=== PATIENT | male | born 2000 | race African-American/Black ===

== ENCOUNTER 2020-06-20 16:23 | Emergency (ER) | payer OTHER, SELFPAY ==
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
[2020-06-20 16:30] VITALS: BP 143/83; PULSE 89; RESP 18; TEMP 36.4; O2SAT 97; BMI 21.3
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
[2020-06-20] MEDS: Lidocaine HCl 1 % MPF 5 ML VIAL SUBCUT (19:08)
== END 2020-06-20 19:55 | disposition home or self-care (01) ==
PROVIDERS: Emergency Provider Internal Medicine; PCP Pediatrics
DX: S01.511A Laceration without foreign body of lip, initial encounter (principal); R51.9 Headache, unspecified; G50.1 Atypical facial pain; Y04.8XXA Assault by other bodily force, initial encounter; Y93.9 Activity, unspecified; Y92.410 Unspecified street and highway as the place of occurrence of the external cause; Y99.8 Other external cause status
CPT/HCPCS: 12011; 73120; 99283

== ENCOUNTER 2025-05-19 10:51 | Emergency (ER) | payer OTHER, SELFPAY ==
--- NOTE | ~2025-05-19 | XR_ITS ---
EXAMINATION: XR KNEE, LEFT CLINICAL INFORMATION: pain, growth COMPARISON: None available. TECHNIQUE: AP oblique and lateral views of the left knee. FINDINGS: Sclerotic marginated tunneling extending from the superior aspect of the lateral femoral condyle and medial aspect of the proximal metaphysis of the tibia and from posterior superior to anterior inferior. No acute cortical disruption or malalignment. Joint space narrowing involving the medial compartment. No suprapatellar bursa joint effusion. No lytic or blastic lesions. XR/XR knee LT 4V IMPRESSION: Status post ACL repair. Electronically signed by: Surinder Wright MD 05/19/2025 11:21 AM EDT
--- NOTE | 2025-05-19 10:59 | ED_ITS ---
HPI - General Adult General Chief complaint: Extremity Problem Stated complaint: Knee Leg Pain Time Seen by Provider: 05/19/25 11:07 Source: patient Mode of arrival: ambulatory Limitations: no limitations History of Present Illness ED Provider: HPI narrative: 24-year-old male with history of ACL repair approximately 6 years ago presenting with left knee pain, feels like he has small growth on the lateral aspect of his knee potentially over the site of meniscal repair as well, no new injury no fevers or chills no swelling. 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 Reports clicking and subluxation of the left knee. Related Data Allergies Allergy/AdvReac Type Severity Reaction Status Date / Time No Known Allergies Allergy Verified 05/19/25 11:02 Review of Systems Constitutional: Constitutional: Reports as per [facility] Past Medical History Medical History (Updated 05/19/25 @ 11:47 by Elvis Bustamante DO) Healthy adult Social History Social History Advance Directives: No Advance Directives Information Provided: Yes Physical Exam ED Exam Exam: Alert and oriented x4 Left knee examination, tight hamstrings, positive patellofemoral grind test, tenderness along lateral facet, no medial or lateral meniscus tenderness, possible anterior lateral plica, ACL is intact, MCL/LCL intact Soft compartments proximally and distally Vital Signs: Vital Signs - 24 hr 05/19/25 11:00 05/19/25 11:51 Temperature 97.4 F 97.4 F Pulse Rate 72 72 Respiratory Rate 16 16 Blood Pressure 115/75 115/75 Pulse Oximetry 99 99 Oxygen Delivery Method Room Air Room Air BMI result Body Mass Index 35.5 Course Course Course Narrative: Rapid medical examination performed in triage by Elaine Feldman PA-C. Patient is a 24 year old assigned male at presenting to the emergency department with left knee pain. Patient states that he has had surgery on this knee and the pain has been getting worse with concern for a growth in the left knee. Detailed physical exam and review of systems are deferred to the education technician. Imaging ordered. Patient placed back in the waiting room pending room availability and results. Medical Decision Making Medical Decision Making [facility] Narrative: Presenting with atraumatic left knee pain in the setting of prior surgery, my suspicion this is likely syndrome, patellofemoral syndrome, discussed hamstring stretching, modifying his workouts on concentrate on squatting down to less than 45 degrees, icing, anti-inflammatories, he would like to see a specialist which is also what I recommend. X-ray reassuring. No evidence for infectious etiology. Differential Diagnosis Differential Diagnoses: The differential diagnosis associated with the presentation includes (Patellofemoral syndrome, plica syndrome, cysts, cellulitis, infection, abscess) Independent Interpretation I performed an independent interpretation of an: Plain X-Ray (Tibial and femoral tunnel from prior ACL, no cysts no fractures noted) Radiology Impression Discussion of test interpretation with radiology: I have reviewed the radiologist's reading. Discharge Plan Discharge Clinical Impression: Patellofemoral pain syndrome of left knee Knee pain, left Qualifiers: Chronicity: unspecified Qualified Code(s): M25.562 - Pain in left knee Patient Disposition: Home, Self-Care Additional Instructions: You can call the number provided for orthopedic surgeons, in the meantime I recommend stretching you hamstrings, modifying your exercises I would avoid deep squats, ice the knee down after workouts for about 20 minutes with a big bag of ice I recommend seeing learning support specialist, you may need outpatient MRI to evaluate for plica syndrome, scar tissue buildup etc. you may need local steroid injection, diagnostic arthroscopy and any other modalities that as determined by learning support specialist, but I recommend until you see orthopedist to follow up on my recommendations as above Your x-ray revealed prior ACL surgery without bony cysts in that area Referrals: [facility]geons [Provider Group, Orthopedics] - 2 weeks Clinical Impression: Knee pain, left; Patellofemoral pain syndrome of left knee Interventions: ED Discharge Assessment Last Done: 05/19/25 11:51 Discharge Date/Time: 05/19/25 11:51 Print Language: Amharic
[2025-05-19 11:00] VITALS: BP 115/75; PULSE 72; RESP 16; TEMP 36.3; O2SAT 99; BMI 35.5
[2025-05-19 11:51] VITALS: BP 115/75; PULSE 72; RESP 16; TEMP 36.3; O2SAT 99
--- OUTSIDE RECORDS SUMMARY | 2025-05-19 14:38 | XMS_ITS | Encounter Summary ---
Author Organization [facility] Address [address] [place] [address] Phone Care Team Providers Care Supervisor Securities Vault Name Role Phone Alma Rosa Villa NP Primary Care Provider Maciel nicolas Encounter Details Date Type Department Care Team (Late st Contact Info) Description 10/15/2009 Documentation [facility] [address] [place], [place] [id number] Family Medicine, Physician [address] [place] [address] Social History Tobacco Use Types Packs/Day Years Used Date Smoking Tobacco: Never Assessed Sex and Gender Information Value Date Recorded Sex Assigned at Not on file Legal Sex Male 4:45 PM EDT Gender Identity Not on file Sexual Orientation Not on file documented as of this encounter Plan of Treatment Not on file documented as of this encounter Visit Diagnoses Not on filedocumented in this encounter Care Teams Supervisor Securities Vault Relationship Specialty Start Date End Date Alma Rosa Villa NP PCP - General 03/03/17 02/28/23 documented as of this encounter
--- OUTSIDE RECORDS SUMMARY | 2025-05-19 14:38 | XMS_ITS | Encounter Summary ---
Author Organization [facility] Address [address] [place] [address] Phone Care Team Providers Care Remote Sensing Analyst Name Role Phone Alma Rosa Villa NP Primary Care Provider Maciel nicolas Encounter Details Date Type Department Care Team (Late st Contact Info) Description 11/04/2011 Documentation [facility] [address] [place], [place] [id number] Family Medicine, Physician [address] [place] [address] Social History Tobacco Use Types Packs/Day Years [...] on filedocumented in this encounter Care Teams Remote Sensing Analyst Relationship Specialty Start Date End Date Alma Rosa Villa NP PCP - General 03/03/17 02/28/23 documented as of this encounter
--- OUTSIDE RECORDS SUMMARY | 2025-05-19 14:38 | XMS_ITS | Clinical Summary ---
Author Organization [facility] Address [address] [id number] Care Team Providers Care Cleaning Associate Name Role Phone Anders Cohen MD Primary Care Provider [phone] Allergies No known active allergies Medications Medication Sig Dispensed Refills Start Date End Date Status promethazine (PHENERGAN) 12.5 MG tablet Take 1 tablet (12.5 mg total) by mouth every 8 (eight) hours as needed. 4 tablet 0 05/06/2019 Active Additional Information Patient not taking.Reason: Other, Reported on 06/03/2019 oxyCODONE (ROXICODONE) 5 MG immediate release tablet Take 1 tablet (5 mg total) by mouth every 6 (six) hours as needed for pain. Do not take until after surgery 25 tablet 0 05/06/2019 Active Additional Information Patient not taking.Reason: Other, Reported on 06/03/2019 aspirin EC 325 MG tablet Take 1 tablet (325 mg total) by mouth 2 (two) times a day. 48 tablet 0 05/06/2019 Active Active Problems Problem Noted Date Diagnosed Date Primary insomnia 09/29/2017 Overview: Overview: 10/08 - trial of periactin Acne 08/27/2014 Social History Tobacco Use Types Packs/Day Years Used Date Smoking Tobacco: Never Smokeless Tobacco: Never Alcohol Use Standard Drinks/Week Comments No 0 (1 standard drink = 0.6 oz pur e alcohol) Sex and Gender Information Value Date Recorded Sex Assigned at Not on file Gender Identity Not on file Sexual Orientation Not on file Last Filed Vital Signs Vital Sign Reading Time Taken Comments Blood Pressure - - Pulse - - Temperature - - Respiratory Rate - - Oxygen Saturation - - Inhaled Oxygen Concentration - - Weight 72.1 kg (159 lb) 04/15/2019 1:58 PM EDT Height 190.5 cm (6' 3 ) 04/15/2019 1:58 PM EDT Body Mass Index 19.87 04/15/2019 1:58 PM EDT Plan of Treatment Health Maintenance Due Date Last Done Comments Hepatitis C Screening 1998 COVID-19 Vaccine (#1) 05/02/1999 Hepatitis B Vaccines (3 of 3 - 3-dose series) 08/31/2000 07/06/2000, 04/05/1999 Depression Screening 2010 Preventative Health Evaluation 2016 DTap / Tdap / Td (7 - Td or Tdap) 05/05/2020 05/05/2010, 12/26/2002, 12/26/2002, Additional history exists Influenza Vaccine (#1) 2025 4, 08/21/2013, 04/27/2009, Additional history exists Pneumococcal Vaccine Aged Out No long er eligible based on patient's age to complete this topic RSV Ped < 20 months Aged Out No longe r eligible based on patient's age to complete this topic Care Teams Cleaning Associate Relationship Specialty Start Date End Date Anders Cohen MD [address] [place] [address] PCP - General Internal Medicine 01/25/19
--- OUTSIDE RECORDS SUMMARY | 2025-05-19 14:38 | XMS_ITS | Encounter Summary ---
Author Organization [facility] Address [address] [place] [address] Phone Care Team Providers Care Bulk Picker Name Role Phone Alma Rosa Villa NP Primary Care Provider Maciel nicolas Encounter Details Date Type Department Care Team (Late st Contact Info) Description 12/27/2011 Documentation [facility] [address] [place], [place] [id number] Family Medicine, Physician [address] [place] [address] Social History Tobacco Use Types Packs/Day Years [...] on filedocumented in this encounter Care Teams Bulk Picker Relationship Specialty Start Date End Date Alma Rosa Villa NP PCP - General 03/03/17 02/28/23 documented as of this encounter
--- OUTSIDE RECORDS SUMMARY | 2025-05-19 14:38 | XMS_ITS ---
Author Name [facility] Organization Unknown Care Team Organization Name Specialty Phone Email Start Date End Da te [facility] Adriana Yee Primary Care 11/28/[address] [facility] Capri Macias Primary Care 05/31/2022 03/11/20 24
--- OUTSIDE RECORDS SUMMARY | 2025-05-19 14:38 | XMS_ITS | Encounter Summary ---
Author Organization [facility] Address [address] [place] [address] Phone Care Team Providers Care Lead Fabricator Name Role Phone Alma Rosa Villa DIRECTOR OF MEDICAL STAFF SERVICES Primary Care Provider Maciel nicolas Encounter Details Date Type Department Care Team (Late st Contact Info) Description 03/09/2017 Conversion Encounter [facility] - [address] [address] Social History Tobacco Use Types Packs/Day Years [...] on filedocumented in this encounter Care Teams Lead Fabricator Relationship Specialty Start Date End Date Alma Rosa Villa NP PCP - General 03/03/17 02/28/23 documented as of this encounter
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
--- OUTSIDE RECORDS SUMMARY | 2025-05-19 14:38 | XMS_ITS | Clinical Summary ---
Author Organization [facility] Address [address] [place] [address] Phone Care Team Providers Care Residential Leasing Manager Name Role Phone Unavailable Primary Care Provider Unavailabl e Immunizations Immunization Administration Dates Next Due DTaP 5 12/26/2002, 1,07/06/2000,02/24,04/05/1999 H1N1 09/03/2009 HPV, Quadrivalent 08/21/2013,07/23/2012 Hep B / HiB 07/06/2000,04/05/1999 Hep B, ped/adol 1998 Hib (HbOC) 01/15/2002 IPV 12/26/2002, 0,02/25/2000,04/05 Influenza Split 07/23/2012,05/24/2011,05/05/2010 Influenza, injectable, quadr ivalent, preservative free 08/21/2013 Influenza, injectable, trivalent 04/27/2009,03/25 MMR 12/26/2002,02/25/2000 Meningococcal Conj (Menactra) MCV4P 05/05/2010 Tdap 05/05/2010 Varicella 04/21/2008,02/25/2000 Family History Relation Name Status Comments Father Father: ADD/ADH D, psych/substace abuse issues Half-Brother Alive Half brother (M ): Asthma Half-Sister Alive Half sister (M) : Alive and well Maternal Grandfather Materna l grandfather: Elevated cholesterol, Obesity, Diabetes mellitus Mother Alive Mother: Asthma, Migraines, ADD/ADHD Other Family history of Diabetes mellitus, No family history of Cancer, Family history of Asthma, Family history of *Heart Disease, Family history of *CVA/Stroke, No family history of *Sudden /VA under 55, Family history of Hyperlipidemia, No family history of Developmental dislocation of hip, No family history of Strabismus, No family history of ADD/ADHD, No family history of Seizure disorder, Family history of Migraines Social History Tobacco Use Types Packs/Day Years Used Date Smoking Tobacco: Never Assessed Sex and Gender Information Value Date Recorded Sex Assigned at Not on file Legal Sex Male 4:45 PM EDT Gender Identity Not on file Sexual Orientation Not on file Last Filed Vital Signs Vital Sign Reading Time Taken Comments Blood Pressure 106/66 08/21/2013 12:00 AM EST Pulse 76 08/21/2013 12:00 AM EST Temperature 35.9 C (96.7 F) 11/24/2013 12:00 AM EDT Respiratory Rate - - Oxygen Saturation - - Inhaled Oxygen Concentration - - Weight 60.7 kg (133 lb 12 oz) 11/24/2013 12:00 A M EDT Height 179.3 cm (5' 10.6 ) 08/21/2013 12:[address] Body Mass Index - - Plan of Treatment Health Maintenance Due Date Last Done Comments DTaP,Tdap,and Td Vaccines (7 - Td or Tdap) 05/05/2020 05/05/2010, 12/26/2002, 01/04/2001, Additional history exists Influenza Vaccines (#1) 2025 08/21/19 14, 07/23/2012, 05/24/2011, Additional history exists COVID-19 Vaccine (2024- season) 2025 Hepatitis B Vaccines Completed 07/06/2000, 04/05/1999, 1998 HIB Vaccines Completed 01/15/2002, 06/23, 04/05/1999 IPV Vaccines Completed 12/26/2002, 06/23, 02/25/2000, Additional history exists MMR Vaccines Completed 12/26/2002, 02/25/2000 Varicella Vaccines Completed 04/21/2008, 02/25/2000 Meningococcal Vaccine Aged Out 05/05/2010 No venancio devin eligible based on patient's age to complete this topic HPV Vaccines Completed 08/21/2013, 07/23/2012 Hepatitis A Vaccines Aged Out No long er eligible based on patient's age to complete this topic Men B Vaccine Aged Out No longer elig ible based on patient's age to complete this topic Pneumococcal Vaccine Aged Out No long er eligible based on patient's age to complete this topic
--- OUTSIDE RECORDS SUMMARY | 2025-05-19 14:38 | XMS_ITS | Encounter Summary ---
Author Organization [facility] Address [address] [place] [id number] Phone Care Team Providers Care Angiography Nurse Name Role Phone Alma Rosa Villa NP Primary Care Provider Maciel nicolas Encounter Details Date Type Department Care Team (Late st Contact Info) Description 05/07/2012 Documentation [facility] [address] [place], [place] [phone] Family Medicine, Physician [address] [place] [address] Social History Tobacco Use Types Packs/Day Years [...] on filedocumented in this encounter Care Teams Angiography Nurse Relationship Specialty Start Date End Date Alma Rosa Villa NP PCP - General 03/03/17 02/28/23 documented as of this encounter
--- OUTSIDE RECORDS SUMMARY | 2025-05-19 14:38 | XMS_ITS | Encounter Summary ---
Author Organization [facility] Address [address] [place] [id number] Phone Care Team Providers Care Interactive Media Specialist Name Role Phone Alma Rosa Villa NP Primary Care Provider Maciel nicolas Encounter Details Date Type Department Care Team (Late st Contact Info) Description 11/15/2011 Documentation [facility] [address] [place], [place] [phone] Family Medicine, Physician [address] [place] [address] Social History Tobacco Use Types Packs/Day Years [...] on filedocumented in this encounter Care Teams Interactive Media Specialist Relationship Specialty Start Date End Date Alma Rosa Villa NP PCP - General 03/03/17 02/28/23 documented as of this encounter
--- OUTSIDE RECORDS SUMMARY | 2025-05-19 14:38 | XMS_ITS | Encounter Summary ---
Author Organization [facility] Address [address] [place] [id number] Phone Care Team Providers Care Editing Computer Publisher Name Role Phone Alma Rosa Villa NP Primary Care Provider Maciel nicolas Encounter Details Date Type Department Care Team (Late st Contact Info) Description 12/09/2011 Documentation [facility] [address] [place], [place] [phone] Family Medicine, Physician [address] [place] [address] Social History Tobacco Use Types Packs/Day Years [...] on filedocumented in this encounter Care Teams Editing Computer Publisher Relationship Specialty Start Date End Date Alma Rosa Villa NP PCP - General 03/03/17 02/28/23 documented as of this encounter
--- OUTSIDE RECORDS SUMMARY | 2025-05-19 14:38 | XMS_ITS | Encounter Summary ---
Author Organization [facility] Address [address] [place] [address] Phone Care Team Providers Care Teaching Supervisor Name Role Phone Alma Rosa Villa NP Primary Care Provider Maciel nicolas Encounter Details Date Type Department Care Team (Late st Contact Info) Description 12/16/2011 Documentation [facility] [address] [place], [place] [phone] Family Medicine, Physician [address] [place] [address] Social History Tobacco Use Types Packs/Day Years [...] on filedocumented in this encounter Care Teams Teaching Supervisor Relationship Specialty Start Date End Date Alma Rosa Villa NP PCP - General 03/03/17 02/28/23 documented as of this encounter
--- OUTSIDE RECORDS SUMMARY | 2025-05-19 14:38 | XMS_ITS | Encounter Summary ---
Author Organization [facility] Address [address] [place] [address] Phone Care Team Providers Care Business Data Analyst Name Role Phone Alma Rosa Villa NP Primary Care Provider Maciel nicolas Encounter Details Date Type Department Care Team (Late st Contact Info) Description 12/28/2011 Documentation [facility] [address] [place], [place] [phone] Family Medicine, Physician [address] [place] [address] Social History Tobacco Use Types Packs/Day Years [...] on filedocumented in this encounter Care Teams Business Data Analyst Relationship Specialty Start Date End Date Alma Rosa Villa NP PCP - General 03/03/17 02/28/23 documented as of this encounter
== END 2025-05-19 11:51 | disposition home or self-care (01) ==
PROVIDERS: Emergency Provider Emergency Medicine
DX: M22.2X2 Patellofemoral disorders, left knee (principal); M25.562 Pain in left knee
CPT/HCPCS: 73564; 99282; 99283

== ENCOUNTER → 2025-05-19 11:01 | Outpatient (BNV) | payer OTHER, SELFPAY | PROVIDERS: Emergency Provider Emergency Medicine; Visit Provider Radiology Diagnostic Radiology | DX: M25.562 Pain in left knee (principal) | CPT/HCPCS: 73564 ==